=== PATIENT | male | born 1955 | race African-American/Black ===

== ENCOUNTER 2020-02-03 16:50 | Observation (INO) ==
[2020-02-03] MEDS ORDERED: LACTATED RINGERS 500 ML IV ONE (20:33)
[2020-02-03] MEDS ORDERED: MORPHINE 4 MG/1 ML VIAL IV STA (20:34)
[2020-02-03 21:21] LABS: Basophils % 0.6 % (0.0-0.8); Eosinophils # 0.3 10*3/uL (0.0-0.87); Eosinophils % 3.9 % (0.00-10.9); Hematocrit 44.1 VOL% (42.0-52.0); Immature Granulocytes % 0.2 %; Immature Granulocytes Absolute 0.01 #; Lymphocytes # 2.2 10*3/uL (1.4-4.0); Lymphocytes % 33.4 % (21.2-54.2); Mean Corpuscular HGB Conc 31.7 GM/DL (32-36); Mean Platelet Volume 9.4 FL (9.6-12.0); Monocytes % 7.5 % (1.7-12.7); Neutrophils % 54.4 % (38.7-73.9); Platelet Count 218 T/CUMM (130-400); Red Blood Count 5.01 MC/CUMM (3.8-5.5); Red Cell Distribution Width 14.6 % (9.3-17.3); White Blood Count 6.4 T/CUMM (4-12)
[2020-02-03 21:45] LABS: Albumin 4.1 G/DL (3.4-5.0); Bilirubin,Total 0.5 MG/DL (0.2-1.0); Calcium 9.6 MG/DL (8.5-10.1); Osmolality,Calculated 270.2 MOS/KG (273-304); Total Protein 8.8 G/DL (6.4-8.3)
[2020-02-03] MEDS ORDERED: DEXTROSE 50% 25 GM/50 ML VIAL IV STA (23:07)
[2020-02-03] MEDS ORDERED: INSULIN REGULAR 100 UNIT/ML IV ONE (23:08)
[2020-02-03] MEDS ORDERED: CALCIUM GLUCONATE 1,000 MG in SODIUM CHLORIDE 0.9% 100 ML IV ONE (23:09)
[2020-02-03] MEDS ORDERED: SODIUM BICARBONATE 50 MEQ/50 ML VIAL IV STA (23:09)
[2020-02-03] MEDS ORDERED: SODIUM POLYSTYRENE SULFATE 15 GM/60 ML BOTTLE PO STA (23:09)
[2020-02-03] MEDS ORDERED: DEXTROSE 50% 25 GM/50 ML SYRINGE IV ONE (23:36)
[2020-02-03] MEDS ORDERED: LORATADINE 10 MG TABLET PO PRN (23:44)
[2020-02-03] MEDS ORDERED: hydrALAZINE 20 MG/1 ML VIAL IV PRN (23:45)
[2020-02-04] MEDS ORDERED: DOCUSATE SODIUM 100 MG CAPSULE PO PRN (01:00)
[2020-02-04] MEDS ORDERED: diphenhydrAMINE CAP 25 MG CAPSULE PO PRN (01:00)
[2020-02-04] MEDS ORDERED: ONDANSETRON 4 MG/2 ML VIAL IV PRN (01:00)
[2020-02-04] MEDS ORDERED: GLUCAGON 1 MG VIAL IM PRN (01:00)
[2020-02-04] MEDS ORDERED: DEXTROSE 50% 25 GM/50 ML VIAL IV PRN (01:00)
[2020-02-04] MEDS ORDERED: ALBUTEROL 2.5 MG/3 ML NEB RESP TX PRN (01:00)
[2020-02-04] MEDS ORDERED: ACETAMINOPHEN 325 MG TABLET PO PRN (01:00)
[2020-02-04] MEDS ORDERED: guaiFENesin/DM ER 600-30 MG TABLET PO PRN (01:00)
[2020-02-04] MEDS ORDERED: hydrALAZINE 20 MG/1 ML VIAL IV PRN (01:00)
[2020-02-04] MEDS ORDERED: MORPHINE 4 MG/1 ML VIAL IV PRN (01:00)
[2020-02-04] MEDS ORDERED: NICOTINE 21 MG/24 HR PATCH TRANSDERM PRN (01:00)
[2020-02-04] MEDS: SODIUM POLYSTYRENE SULFATE 15 GM/60 ML BOTTLE PO SCH ×5 (01:30→20:56)
[2020-02-04] MEDS: SODIUM CHLORIDE 0.9% 1,000 ML IV SCH (02:00)
[2020-02-04 08:21] LABS: Osmolality,Calculated 269.4 MOS/KG (273-304)
[2020-02-04] MEDS: PANTOPRAZOLE 40 MG TABLET PO SCH (08:55)
[2020-02-04] MEDS ORDERED: FUROSEMIDE 20 MG TABLET PO SCH (09:00)
[2020-02-04] MEDS: MULTIVITAMIN (CENTRUM) TABLET PO SCH (09:29)
[2020-02-04] MEDS: carvediloL 25 MG TABLET PO SCH ×2 (09:29→16:54)
[2020-02-04] MEDS ORDERED: CALCIUM GLUCONATE 1,000 MG in SODIUM CHLORIDE 0.9% 100 ML IV ONE (18:00)
[2020-02-04] MEDS: FUROSEMIDE 20 MG/2 ML VIAL IV SCH (18:27)
[2020-02-04] MEDS: SODIUM BICARB INJ 50 MEQ in DEXTROSE 5% 1,000 ML IV SCH (20:55)
[2020-02-04] MEDS ORDERED: ATORVASTATIN 10 MG TABLET PO SCH (21:00)
[2020-02-05] MEDS: FUROSEMIDE 20 MG/2 ML VIAL IV SCH ×2 (01:34→05:11)
[2020-02-05] MEDS: SODIUM POLYSTYRENE SULFATE 15 GM/60 ML BOTTLE PO SCH (01:35)
[2020-02-05] MEDS: SODIUM CHLORIDE 0.9% 1,000 ML IV SCH (01:36)
[2020-02-05] MEDS: SODIUM BICARB INJ 50 MEQ in DEXTROSE 5% 1,000 ML IV SCH (05:10)
[2020-02-05] MEDS: PANTOPRAZOLE 40 MG TABLET PO SCH (08:51)
[2020-02-05] MEDS: carvediloL 25 MG TABLET PO SCH (08:51)
[2020-02-05] MEDS: MULTIVITAMIN (CENTRUM) TABLET PO SCH (08:51)
[2020-02-05 08:56] LABS: Calcium 9.2 MG/DL (8.5-10.1); Osmolality,Calculated 270.2 MOS/KG (273-304)
[2020-02-05] MEDS ORDERED: cloNIDine 0.1 MG TABLET PO SCH (09:00)
[2020-02-05] MEDS ORDERED: HYDROCORTISONE 2.5% RECTAL CREAM 30 GM TUBE TOP PRN (11:32)
[2020-02-05 12:35] VITALS: BP 139/92
[2020-02-05] MEDS ORDERED: LABETALOL 200 MG TABLET PO SCH (21:00)
[2020-02-05] MEDS ORDERED: LABETALOL 100 MG TABLET PO SCH ×2 (21:00)
== END 2020-02-05 16:06 | disposition home or self-care (01) ==
LOC: N.EDINP 16:50 → N.ED 16:50 → SUATTDRO 02-04 01:00 → N.TELEN 02-04 12:35
PROVIDERS: ADMIT Internal Medicine; ATTEND Internal Medicine